=== PATIENT | female | born 2000 | race Caucasian/White ===

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

== ENCOUNTER 2024-05-30 20:28 | Emergency (ER) | payer SELFPAY ==
[2024-05-30] MEDS: Oxymetazoline 0.05% Nasal Spray 30 ML Bottle NAS ONE (20:43)
== END 2024-05-30 21:15 | disposition home or self-care (01) ==
LOC: KA.ED 20:28
DX: R04.0 Epistaxis (principal); Z88.0 Allergy status to penicillin
CPT/HCPCS: 30901; 99283; A9270-GY